=== PATIENT | male | born 1960 | race Caucasian/White ===

== ENCOUNTER 2019-11-09 18:35 | Emergency (ER) | payer OTHER ==
[~2019-11-09] VITALS: Ht 182.9 cm; Wt 93.6 kg
[2019-11-09 19:26] VITALS: BP 142/87; PULSE 75; TEMP 97.5
== END 2019-11-09 19:27 | disposition home or self-care (01) ==
LOC: COL.ER 18:35
DX: S61.213A Laceration without foreign body of left middle finger without damage to nail, initial encounter (principal); Z90.49 Acquired absence of other specified parts of digestive tract; W26.8XXA Contact with other sharp object(s), not elsewhere classified, initial encounter; Y92.009 Unspecified place in unspecified non-institutional (private) residence as the place of occurrence of the external cause